=== PATIENT | female | born 1970 | race Caucasian/White ===

== ENCOUNTER → 2016-09-27 | Day surgery (SDC) | payer OTHER ==
--- NOTE | 2016-09-24 09:28 | TH ---
cc: JOAN KEENAN M.D. DATE: DATE OF : 1970 PROCEDURE TO BE PERFORMED Bilateral reduction mammoplasty. HISTORY OF PRESENT ILLNESS This is a 45-year-old female who underwent a bilateral reduction mammoplasty back in November of last year removing a significant amount of weight. Unfortunately, the patient had still significant weight, the reason for which she is here today. PAST MEDICAL HISTORY Otherwise unremarkable. ALLERGIES KEFLEX. PAST SURGICAL HISTORY in 2004. PHYSICAL EXAMINATION GENERAL APPEARANCE: The patient is a well-developed female in no acute distress. Body habitus is within normal limits. There appear to be no deformities. Appears to have attention to grooming. HEENT: Conjunctiva and lids are within normal anatomical limits. The pupils are reactive to light and accommodation, size and symmetry. There is no evidence of exudate, hemorrhage, or vessel change. The external inspection of the ears and nose fails to demonstrate any pathology, scars, lesions, or masses. Nasal mucosa, septum, and turbinates appear to be well-hydrated as well as the lips and gums. No evidence of masses in the hypopharynx or submental area. CHEST: The patient shows no evidence of intercostal retractions. LUNGS: Clear to auscultation without any abnormal sounds or rubs. CARDIOVASCULAR: The patient has a normal heart rate and rhythm. There is no evidence of noted carotid bruits. Femoral pulses and pedal pulses in the extremities are also within normal limits. ABDOMEN: Soft with no evidence of masses or tenderness. Unable to palpate the liver or spleen. No evidence of hernia. MUSCULOSKELETAL: Appears to be reasonable range of motion of the head, neck, spine, ribs, pelvis, right upper extremity, left upper extremity, right lower extremity, and left lower extremity. The muscle strength and tone appears to be equal and within accepted limits. SKIN: There are no rashes, lesions, or ulcers on the trunk, back or extremities. NEUROLOGICAL: Examination is grossly normal. PSYCHIATRIC: The patient appears to have good orientation of time, place, and person. Does not appear to have any mood affects of depression, anxiety, or agitation. BREASTS: The breasts continue to be significantly macromastic with well-healed mammoplasty incisions. PLAN The plan is to do an lipo assist reduction mammoplasty. The red blood cells were discussed with the patient. MD TERESITA Madrigal /9:10 AM /9:16 AM
[~2016-09-27] MED LIST: ACETAMINOPHEN 1000 MG/100 ML VIAL IV ONE; ACETAMINOPHEN/HYDROcodone 325 MG/5 MG TAB ONE; BUPIVACAINE/EPINEPHRINE 0.25% 50 ML VIAL ONE; HALOPERIDOL LACTATE 5 MG/ML AMP ONE; KETOROLAC TROMETHAMINE 30 MG/ML (IVP) VIAL ONE; LACTATED RINGER'S 1000 ML INJ 1,000 ML ONE; LIDOCAINE 0.5%/EPINEPHrine 1:200,000 SOLN 50 ML VIAL ONE; LIDOCAINE 1%/EPINEPHrine 1:100,000 SOLN 50 ML VIAL ONE; LIDOCAINE HCL 1% 50 ML VIAL ONE; LIDOCAINE HCL 1% PF 30 ML VIAL ONE; MEPERIDINE HCL 50 MG/ML VIAL ONE; MIDAZOLAM HCL 2 MG/2 ML VIAL ONE; MORPHINE SULFATE 4 MG/ML INJ ONE; NEOMYCIN/POLYMYXIN/BACITRACIN OINT 15 GM TUBE ONE; ONDANSETRON HCL 4 MG/2 ML VIAL IV PUSH ONE; PROPOFOL 200 MG/20 ML AMP IV ONE; VANCOMYCIN 500 MG VIAL ONE; Z.0.BCPILL PO
--- NOTE | 2016-09-27 13:02 | TN ---
cc: GINO DRAPER M.D. DATE OF SURGERY 09/27/2016 PREOPERATIVE DIAGNOSIS Status post bilateral mammary reduction mammoplasty with further gain of weight and gain of volume and discomfort. PROCEDURE Revision reduction mammoplasty including suction-assisted lipoplasty. SURGEON Gino Draper MD ANESTHESIA LMA general. ESTIMATED BLOOD LOSS Minimal. The markings of the NAC was sent at 23 cm from sternal notch, 42 mm areolar diameter. The total amount of breast removed was 700 cc per breast. Of that, 500 was to be used in liposuction and the next 200 was from the excess of the lateral and medial breast tissue. PROCEDURE The patient was properly consented, marked and anesthetized, skin sterilized with Betadine solution, sterile draping applied. Tumescent was carried out in which 1000 cc of normal saline and I applied 30 cc of 1% lidocaine plain and 1 cc of epinephrine 1:1000. Suction-assisted lipoplasty was done utilizing micro blade. 500 cc per breast was removed equally and in a systematic fashion through lateral puncture wounds. With this, a tailor tack technique was utilized in order to assess the true areas of axis of breast tissue which happened to be the medial and lateral poles. With this, I proceeded to de-epithelialized the center pedicle, removed the medial and lateral axis of breast tissue, reset the flaps utilizing 2-0 Monocryl suture. The NAC was brought out the neural new placement of 23 cm from the sternal notch and 42 mm areolar diameter. I proceeded to the closure of the wounds including the Insorb and Dermabond Prineo. Good viability of tissue was noted at the end of the case. The patient was awakened, extubated in the operating room, transferred back to the Postanesthesia Care Unit in stable condition. No complications appreciated. The patient tolerated the procedure fairly well. MD KRYSTLE Madrigal/FINA /11:10 AM /12:54 PM JODIE
== END | disposition home or self-care (01) ==
LOC: ESDC 06:50
PROVIDERS: ATTEND Plastic Surgery
DX: N62 Hypertrophy of breast (principal)
CPT/HCPCS: 00402; 19318; J0131; J1630; J1885; J2175; J2250; J2270; J2405; J3010; J3370; J7120